=== PATIENT | male | born 1975 | race Two or more races ===

== ENCOUNTER 2017-11-03 17:04 | Emergency (ER) | payer MEDICAID ==
[~2017-11-03] VITALS: Ht 152.4 cm; Wt 114.0 kg
[2017-11-03 17:33] VITALS: BP 161/85
[2017-11-03] MEDS ORDERED: CYCL-1 PO (18:39)
[2017-11-03] MEDS ORDERED: ketorolac trometh inj. 60 MG/2 ML VIAL IM ONE (18:40)
[2017-11-03] MEDS ORDERED: IBUP-1984 PO (18:40)
== END 2017-11-03 18:51 | disposition home or self-care (01) ==
LOC: ER 17:05
DX: S29.019A Strain of muscle and tendon of unspecified wall of thorax, initial encounter (principal); V89.2XXA Person injured in unspecified motor-vehicle accident, traffic, initial encounter; Y93.89 Activity, other specified; Y92.89 Other specified places as the place of occurrence of the external cause; Y99.8 Other external cause status
CPT/HCPCS: 96372; 99283; J1885